=== PATIENT | female | born 1985 | race Hispanic/Latino ===

== ENCOUNTER 2018-10-18 07:27 | Emergency (ER) | payer SELFPAY ==
[2018-10-18 08:12] LABS: BASOPHILS % (AUTO) 0.6 % (0.0-5.0); EOSINOPHILS % (AUTO) 0.6 % (0.0-8.0); HEMATOCRIT 36.3 % (36-48); MEAN CORPUSCULAR HEMOGLOBIN 28.2 pg (27.0-33.0); MEAN CORPUSCULAR HGB CONC 32.9 g/dL (32.0-36.0); MEAN CORPUSCULAR VOLUME 85.8 fL (79-99); MONOCYTES % (AUTO) 5.4 % (3.0-13.0); NEUTROPHILS % (AUTO) 56.4 % (40.0-77.0); PLATELET COUNT (AUTO) 285 K/uL (130-400); RED BLOOD CELL COUNT(AUTO) 4.23 MIL/uL (4.00-5.50); RED CELL DISTRIBUTION WIDTH 14.4 % (11.0-15.5); WHITE BLOOD COUNT (AUTO) 10.5 K/uL (4.8-10.8)
[2018-10-18 08:21] LABS: CREATININE 0.8 mg/dL (0.5-1.5); POTASSIUM 3.8 mmol/L (3.5-5.1)
[2018-10-18 08:25] LABS: ALBUMIN 3.4 g/dL (3.5-5.0); BILIRUBIN,TOTAL 0.1 mg/dL (0.2-1.0); TOTAL PROTEIN, SERUM 7.7 g/dL (6.0-8.3)
[2018-10-18] MEDS ORDERED: LIDOCAINE HCL 2% VISCOUS 15 ML UDCUP ONE (08:38)
== END 2018-10-18 09:38 | disposition home or self-care (01) ==
LOC: EDH 07:27
DX: K08.89 Other specified disorders of teeth and supporting structures (principal); J45.909 Unspecified asthma, uncomplicated; I10 Essential (primary) hypertension
CPT/HCPCS: 36415; 80053; 83605; 85025

== ENCOUNTER 2021-01-18 19:00 | Emergency (ER) | payer SELFPAY ==
[~2021-01-18] VITALS: Ht 160 cm; Wt 111.1 kg
[2021-01-18 20:50] VITALS: BP 139/75
[2021-01-18] MEDS ORDERED: TRAM1TAB PO (21:12)
[2021-01-18] MEDS ORDERED: HYDROCODONE/ACETAMINOPHEN 10/325 MG TAB PO ONE (21:15)
[2021-01-18] MEDS ORDERED: HYDROCODONE/ACETAMINOPHEN 10/325 MG TAB ONE (21:19)
== END 2021-01-18 21:31 | disposition home or self-care (01) ==
LOC: EDH 19:00
DX: S93.492A Sprain of other ligament of left ankle, initial encounter (principal); E66.9 Obesity, unspecified; Z88.6 Allergy status to analgesic agent; Z79.899 Other long term (current) drug therapy; W18.39XA Other fall on same level, initial encounter; Y93.01 Activity, walking, marching and hiking; Y92.89 Other specified places as the place of occurrence of the external cause; Y99.8 Other external cause status
CPT/HCPCS: 73610

== ENCOUNTER 2021-02-08 09:08 | Emergency (ER) | payer OTHER ==
[~2021-02-08] VITALS: Ht 160 cm; Wt 111.6 kg
[~2021-02-08 09:08] MED LIST: TRAM1TAB PO
== END 2021-02-08 11:54 | disposition home or self-care (01) ==
LOC: EDH 09:08
DX: S93.492A Sprain of other ligament of left ankle, initial encounter (principal); I10 Essential (primary) hypertension; Z88.6 Allergy status to analgesic agent; Z79.899 Other long term (current) drug therapy; X58.XXXA Exposure to other specified factors, initial encounter; Y93.89 Activity, other specified; Y92.89 Other specified places as the place of occurrence of the external cause; Y99.8 Other external cause status
CPT/HCPCS: 73610

== ENCOUNTER 2022-01-26 01:15 | Emergency (ER) | payer OTHER ==
[~2022-01-26] VITALS: Ht 160 cm; Wt 107.0 kg
[~2022-01-26 01:15] MED LIST changes: -TRAM1TAB PO; +TRAM1TAB2 PO
[2022-01-26 01:34] VITALS: BP 131/73
[2022-01-26] MEDS ORDERED: DOXYCYCLINE HYCLATE 100 MG TABLET PO SCH (02:00)
[2022-01-26] MEDS ORDERED: DOXY-336 PO (02:09)
== END 2022-01-26 02:27 | disposition home or self-care (01) ==
LOC: EDH 01:15
DX: T63.301A Toxic effect of unspecified spider venom, accidental (unintentional), initial encounter (principal); I10 Essential (primary) hypertension; Z88.6 Allergy status to analgesic agent; Z90.721 Acquired absence of ovaries, unilateral; Y92.89 Other specified places as the place of occurrence of the external cause

== ENCOUNTER 2023-01-09 13:59 | Emergency (ER) | payer OTHER ==
[~2023-01-09] VITALS: Ht 160 cm; Wt 106.1 kg
[~2023-01-09 13:59] MED LIST changes: +DOXY-469 PO
[2023-01-09 14:00] VITALS: BP 142/88
== END 2023-01-09 20:04 | disposition left against medical advice (07) ==
LOC: EDH 13:59
DX: M79.641 Pain in right hand (principal); Z53.21 Procedure and treatment not carried out due to patient leaving prior to being seen by health care provider
CPT/HCPCS: 73120; 99281